=== PATIENT | female | born 1995 | race African-American/Black ===

== ENCOUNTER 2017-01-15 11:49 | Emergency (ER) | payer OTHER ==
[~2017-01-15] VITALS: Ht 167.6 cm; Wt 56.7 kg
[~2017-01-15 11:49] MED LIST: APAP500 PO; BACTRIM DS TAB1 EACH PO; DERMOPLAST SPRA56 ML; HYDROCORTISONE30 G9 TOP; IBUPROFEN 800800 M1 PO; LANOLIN56 GM; PRENATAL; PRENATAL COMPL1 EACH PO; TUCKS MEDICATE1 EAC1
[2017-01-15 11:50] VITALS: BP 130/88
[2017-01-15] MEDS ORDERED: NORFLEX100 MG PO (12:04)
[2017-01-15] MEDS ORDERED: NAPROSYN500 MG PO (12:04)
== END 2017-01-15 14:32 | disposition home or self-care (01) ==
LOC: ER 11:49
DX: S16.1XXA Strain of muscle, fascia and tendon at neck level, initial encounter (principal); S39.012A Strain of muscle, fascia and tendon of lower back, initial encounter; V43.52XA Car driver injured in collision with other type car in traffic accident, initial encounter; Y93.I9 Activity, other involving external motion; Y92.89 Other specified places as the place of occurrence of the external cause; Y99.8 Other external cause status

== ENCOUNTER 2017-10-03 21:19 | Emergency (ER) | payer OTHER ==
[~2017-10-03] VITALS: Ht 167.6 cm; Wt 59.0 kg
[~2017-10-03 21:19] MED LIST changes: +NAPROSYN500 MG PO; +NORFLEX100 MG PO
[2017-10-03 22:18] LABS: URINE BILIRUBIN NEGATIVE (Negative); URINE BLOOD NEGATIVE (Negative); URINE CLARITY CLEAR; URINE COLOR YELLOW; URINE GLUCOSE-RANDOM* NEGATIVE (Negative); URINE KETONES NEGATIVE (Negative); URINE LEUKOCYTES-REFLEX NEGATIVE (Negative); URINE NITRITE-REFLEX NEGATIVE (Negative); URINE PROTEIN (DIPSTICK) NEGATIVE (Negative)
[2017-10-03] MEDS ORDERED: IBUPROFEN 600600 M1 PO (22:58)
[2017-10-03 23:34] VITALS: BP 130/65
== END 2017-10-03 23:34 | disposition home or self-care (01) ==
LOC: ER 21:19
PROVIDERS: Emergency Medicine
DX: R10.2 Pelvic and perineal pain (principal)